=== PATIENT | female | born 1995 | race Caucasian/White ===

== ENCOUNTER 2024-05-16 14:54 | Emergency (ER) | payer SELFPAY ==
[~2024-05-16] VITALS: Ht 165.1 cm; Wt 56.8 kg
[2024-05-16 14:56] VITALS: TEMP 98.1
[2024-05-16] MEDS: IBUPROFEN 600 MG TABLET PO ONE (16:53)
[2024-05-16 18:08] VITALS: BP 129/68; PULSE 89; RESP 18; O2SAT 98
== END 2024-05-16 18:09 | disposition home or self-care (01) ==
LOC: EMS 14:54
DX: R07.89 Other chest pain (principal)
CPT/HCPCS: 71045; 93005; 99283

== ENCOUNTER 2024-11-12 23:30 | Emergency (ER) | payer MEDICAID ==
[~2024-11-12] VITALS: Ht 152.4 cm; Wt 55.9 kg
[2024-11-12 23:51] VITALS: TEMP 97.7
[2024-11-13] MEDS: IBUPROFEN 400 MG TABLET PO ONE (01:13)
[2024-11-13] MEDS: ACETAMINOPHEN 325 MG TABLET PO ONE (01:13)
[2024-11-13 01:25] LABS: PLATELET COUNT (AUTO) 260 K/uL (150-450); RED BLOOD CELL COUNT(AUTO) 4.41 MIL/uL (4.00-5.20); RED CELL DISTRIBUTION WIDTH 12.7 % (11.5-14.5); WHITE BLOOD COUNT (AUTO) 9.8 K/uL (4.5-11.0)
[2024-11-13 01:30] LABS: CALCIUM, TOTAL 8.8 mg/dL (8.8-10.5); CREATININE 0.58 mg/dL (0.60-1.30); GLOMERULAR FILTR. RATE CALC > 60 mL/min (>60); GLUCOSE,RANDOM 93 mg/dL (70-110); SODIUM SERUM 140 mmol/L (136-145); UREA NITROGEN, BLOOD 7 mg/dL (7-18)
[2024-11-13 01:31] LABS: PH,URINE DRUG SCREEN 6.0 (5.0-8.0)
[2024-11-13 01:37] LABS: ALCOHOL, URINE DRUG SCREEN NEGATIVE (NEGATIVE); AMPHET/METH SCREEN,URINE NEGATIVE (NEGATIVE); BARBITURATE SCREEN, URINE NEGATIVE (NEGATIVE); CANNABINOID SCREEN,URINE NEGATIVE (NEGATIVE); COCAINE SCREEN,URINE NEGATIVE (NEGATIVE); METHADONE SCREEN, URINE NEGATIVE (NEGATIVE)
[2024-11-13 02:51] VITALS: BP 116/69; PULSE 78; RESP 16; O2SAT 99
== END 2024-11-13 03:24 | disposition home or self-care (01) ==
LOC: EMS 23:30
DX: R07.89 Other chest pain (principal); R00.2 Palpitations; R94.6 Abnormal results of thyroid function studies
CPT/HCPCS: 80048; 80307; 83735; 84443; 84703; 85025; 93005; 99284